=== PATIENT | female | born 1935 | race Hispanic/Latino ===

== ENCOUNTER 2020-12-22 07:10 | Observation (INO) | payer MEDICARE ==
[2020-12-22] MEDS ORDERED: ASPIRIN EC 325 MG TAB PO ONE (08:14)
[2020-12-22 08:32] LABS: Basophils # (Auto) 0.1 K/mm3 (0.0-0.1); Basophils % (Auto) 0.8 % (0.0-1.8); Eosinophils # (Auto) 0.3 K/mm3 (0.0-0.4); Eosinophils % (Auto) 3.3 % (0.0-4.3); Hematocrit 39.2 % (30.3-42.9); Hemoglobin 13.1 gm/dl (10.1-14.3); Lymphocytes # (Auto) 2.1 K/mm3 (1.2-5.4); Mean Corpuscular HGB Conc 33 % (30-34); Mean Corpuscular Volume 96 fl (79-97); Monocytes # (Auto) 0.6 K/mm3 (0.0-0.8); Platelet Count 189 K/mm3 (140-440); Red Blood Count 4.11 M/mm3 (3.65-5.03); Red Cell Distribution Width 13.7 % (13.2-15.2)
[2020-12-22] MEDS ORDERED: HEPARIN/NS 5000 UNIT/500ML 1,000 ML IR ONE (08:48)
[2020-12-22 08:57] LABS: Calcium 8.5 mg/dL (8.4-10.2)
[2020-12-22] MEDS ORDERED: SODIUM CHLORIDE 0.9% 500 ML 500 ML IV SCH (09:00)
[2020-12-22] MEDS: fentaNYL 100 MCG/2 ML INJ ONE ×2 (09:25→09:53)
[2020-12-22] MEDS: VERAPAMIL 5 MG/2 ML INJ ONE ×2 (09:26→09:56)
[2020-12-22] MEDS: LIDOCAINE (2%) 20 MG/1 ML VIAL 20 ML MDV INFILTRATI ONE ×2 (09:26→09:54)
[2020-12-22] MEDS: HEPARIN 10,000 UNITS/10 ML VIAL ONE ×3 (09:26→10:11)
[2020-12-22] MEDS: MIDAZOLAM 2 MG/2 ML INJ ONE ×2 (09:26→09:53)
[2020-12-22] MEDS: NITROGLYCERIN SYRINGE 3 ML ONE ×2 (09:27→09:56)
[2020-12-22] MEDS ORDERED: CLOPIDOGREL 300 MG TAB ONE (10:37)
[2020-12-22] MEDS ORDERED: ALUM-MAG HYDROXIDE-SIMETHICONE 200-200-20MG/5ML ORAL LIQD 30 ML ONE (10:37)
--- NOTE | 2020-12-22 10:57 | Cardiac Catherization Report ---
REFERRING PHYSICIAN: Dr. Shawna Gotti. INDICATION FOR PROCEDURE: The patient is a very pleasant 85-year-old female, having worsening shortness of breath, abnormal stress test with nuclear perfusion imaging. She is known to have nonobstructive coronary artery disease from catheterization years ago. Risks, benefits, alternatives discussed at length prior to obtaining informed consent. PROCEDURE IN DETAIL: The patient was brought to catheterization lab in a postabsorptive state, prepped and draped in sterile fashion. Ishan's test in right hand was normal. A 2 mL of 2% lidocaine used to anesthetize the right wrist. A standard 6-Martiniquais hydrophilic sheath used to cannulate the right radial artery via modified Seldinger technique. All exchanges performed to exchange a J-tip guidewire. JL3.5 catheter used to engage the left main. No dampening or ventricularization. Cineangiography performed in all projections. JR4 catheter was used to cross the aortic valve under fluoroscopic guidance. Left ventriculography performed in 30 GODOY and 30 INDONESIAN projections via hand injections, catheter flushed. Manual pullback performed with continuous pressure monitoring. Catheter used to engage the right coronary. No dampening or ventricularization. Cineangiography performed in all projections. Next, a catheter removed from the body. DATA: Aortic pressure is 120/50, LV pressure is 120. LVEDP of 15 mmHg. Left ventriculography reveals normal systolic performance with estimated ejection fraction of 50-55%. No evidence of aortic stenosis. CORONARY ANATOMY: This is a right dominant system. Right coronary artery is a moderate sized vessel, courses AV groove, distally bifurcates into posterior and posterolateral branches. The right coronary is diffusely and heavily calcified with a long 60-70% stenoses throughout the proximal and mid segment. Again, heavily calcified. CARLI 3 flow. Would recommend medical management. The left main without significant disease, bifurcates into left anterior descending and left circumflex. The left circumflex, moderate sized vessel, courses AV groove. No significant disease. LAD is a moderate sized vessel, courses anterior intergroove, wraps around the apex. There is a 90% stenosis in the mid portion of the proximal LAD. This correlates with her abnormal stress test. This is a discrete lesion, eccentric only mildly calcified. At this point, given her symptoms, abnormal stress test with anterior ischemia, we decided to proceed with PCI. Heparin given. Abnormal ACT confirmed. We used an EBU 3.0 guide to engage the left main without difficulty. Heparin given. Abnormal ACT is confirmed. The patient is on Plavix and aspirin. A [place] wire used to cross the lesion without difficulty. We used a 3.0 x 18 [place] drug-eluting stent at 12 DORIS for 30 seconds. The distal segment of the stent is under expanded. We used a 3.0 x 12 noncompliant balloon to post-dilate the segment successfully. Intravascular ultrasound reveals well-opposed, well-expanded stent, 0% residual stenosis, CARLI 3 flow. Final angiogram reveals no complication. The patient tolerated the procedure well. No chest pain. I directly supervised the administration of moderate sedation with fentanyl and Versed from 9:50 a.m. to 10:35 a.m. No immediate complications identified. CONCLUSIONS: 1. Severe coronary artery disease. A. Culprit 90% ulcerated proximal LAD. Successful IVUS-guided percutaneous coronary intervention with placement of drug-eluting stent ([place] 3.0 x 18) with excellent final angiographic and ultrasonographic results, 0% stenosis and CARLI 3 flow. B. Long calcific complex 60-70% proximal and mid right coronary stenosis. Recommend medical management. 2. No other obstructive disease identified. 3. Preserved left ventricular systolic performance, estimated ejection fraction of 55-60%. 4. No evidence of aortic stenosis. 5. Normal LVEDP. 6. Normal sinus rhythm throughout. The patient is clinically stable, chest pain free. Aspirin, Plavix, statin, standard radial care. We will discuss with daughter, Carolyn, via telephone. If the patient has any recurrent chest pain, we would consider rotablation and PCI of complex right coronary at [place], but would reserve that only if needed. Anticipate a.m. discharge. JOB# [id number] SBM/NTS
[2020-12-22] MEDS ORDERED: HYDROcodone/ACETAMINOPHEN 5-325 MG TAB PO PRN (11:30)
[2020-12-22] MEDS: APIXABAN 5 MG TAB PO SCH (22:35)
[2020-12-22] MEDS: carvediloL 12.5 MG TAB PO SCH (22:35)
[2020-12-23 06:33] LABS: Basophils % (Auto) 0.6 % (0.0-1.8); Eosinophils # (Auto) 0.2 K/mm3 (0.0-0.4); Eosinophils % (Auto) 2.1 % (0.0-4.3); Hematocrit 37.5 % (30.3-42.9); Hemoglobin 12.4 gm/dl (10.1-14.3); Lymphocytes # (Auto) 1.3 K/mm3 (1.2-5.4); Lymphocytes % (Auto) 16.8 % (13.4-35.0); Mean Corpuscular HGB Conc 33 % (30-34); Mean Corpuscular Volume 95 fl (79-97); Monocytes # (Auto) 0.6 K/mm3 (0.0-0.8); Monocytes % (Auto) 7.2 % (0.0-7.3); Platelet Count 179 K/mm3 (140-440); Red Blood Count 3.97 M/mm3 (3.65-5.03); Red Cell Distribution Width 13.8 % (13.2-15.2)
[2020-12-23 06:37] LABS: Creatine Kinase MB 8.6 ng/mL (0.0-4.0)
[2020-12-23 06:40] LABS: Calcium 8.4 mg/dL (8.4-10.2)
[2020-12-23 06:51] LABS: Chol/HDL Ratio 2.16 %
--- NOTE | 2020-12-23 09:04 | XRay Report ---
CHEST 1 VIEW 12/23/2020 7:53 AM INDICATION / CLINICAL INFORMATION: post pci. COMPARISON: None available. FINDINGS: SUPPORT DEVICES: Pacemaker has been placed from a left approach. HEART / MEDIASTINUM: No significant abnormality. LUNGS / PLEURA: No significant pulmonary or pleural abnormality. No pneumothorax. ADDITIONAL FINDINGS: No significant additional findings. IMPRESSION: 1. No acute findings. Signer Name: Peter Eng MD Signed: 12/23/2020 8:59 AM Workstation Name: [id number]
[2020-12-23] MEDS ORDERED: ASPIRIN 81 MG TAB CHEW PO SCH (10:00)
[2020-12-23] MEDS ORDERED: CLOPIDOGREL 75 MG TAB PO SCH (10:00)
[2020-12-23] MEDS ORDERED: amLODIPine 5 MG TAB PO SCH (10:00)
[2020-12-23] MEDS ORDERED: ASPIRIN EC 325 MG TAB PO SCH (10:00)
[2020-12-23] MEDS ORDERED: APIXABAN 5 MG TAB PO SCH (10:00)
--- NOTE | 2020-12-23 10:58 | Short Stay Summary ---
Short Stay Documentation Date of service: 12/23/20 - History H&P: obtained from office - Allergies and Medications Current Medications: Allergies sulfamethoxazole [From Bactrim] Allergy (Verified 12/22/20 08:13) Rash trimethoprim [From Bactrim] Allergy (Verified 12/22/20 08:13) Rash Home Medications Medication Instructions Recorded Confirmed Last Taken Type Apixaban [Eliquis] 5 mg PO DAILY 12/22/20 12/22/20 12/19/20 History 5 mg Escitalopram [Lexapro] 10 mg PO DAILY 12/22/20 12/22/20 12/21/20 History 10 mg Furosemide [Lasix] 40 mg PO DAILY 12/22/20 12/22/20 12/21/20 History 40 mg Isosorbide Mononitrate [Isosorbide 30 mg PO DAILY 12/22/20 12/22/20 12/21/20 History Mononitrate ER] 30 mg Levothyroxine [Synthroid] 100 mcg PO DAILY 12/22/20 12/22/20 12/21/20 History 100 mcg Olmesartan (Nf) [Benicar] 20 mg PO DAILY 12/22/20 12/22/20 12/21/20 History 20 mg Rosuvastatin (Nf) [Crestor] 10 mg PO QHS 12/22/20 12/22/20 12/21/20 History 10 mg amLODIPine 5 mg PO DAILY 12/22/20 12/22/20 12/21/20 History 5 mg carvediloL [Coreg] 12.5 mg PO BID 12/22/20 12/22/20 12/21/20 History 12.5mg traZODone [Desyrel] 50 mg PO QHS 12/22/20 12/22/20 12/21/20 History 12.5mg Active Medications Hydrocodone Bitart/Acetaminophen (Hydrocodone/Acetaminophen 5-325 Mg Tab) 1 each PO Q6H PRN PRN Reason: Pain, Moderate (4-6) Amlodipine Besylate (Amlodipine 5 Mg Tab) 5 mg PO DAILY LIZ Apixaban (Apixaban 5 Mg Tab) 5 mg PO BID LIZ; Protocol Last Admin: 12/22/20 22:35 Dose: 5 mg Documented by: Aspirin (Aspirin 81 Mg Tab Chew) 81 mg PO QDAY LIZ Atorvastatin Calcium (Atorvastatin 40 Mg Tab) 40 mg PO QHS [facility] Last Admin: 12/22/20 22:35 Dose: 40 mg Documented by: Carvedilol (Carvedilol 12.5 Mg Tab) 12.5 mg PO BID [facility] Last Admin: 12/22/20 22:35 Dose: 12.5 mg Documented by: Clopidogrel Bisulfate (Clopidogrel 75 Mg Tab) 75 mg PO QDAY [facility] Isosorbide Mononitrate (Isosorbide Mononitrate Er 30 Mg Tab) 30 mg PO DAILY [facility] - Physical exam General appearance: no acute distress Integumentary: no rash, no growths, no abnormal pigmentation, other (RRA [facility] site c/d/i, no bleeding or hematoma ) HEENT: Atraumatic, PERRLA Lungs: Clear to auscultation Heart: Regular rate, Normal S1, Normal S2 Gastrointestinal: normal, normoactive bowel sounds Extremities: no ischemia, pulses intact, pulses symmetrical Neurological: Normal gait, Normal speech, Strength at 5/5 X4 ext - Brief post op/procedure progress note Date of procedure: 12/22/20 Pre-op diagnosis: abnormal stress test Post-op diagnosis: other (CAD) Procedure: [facility] with PCI - see dictated cath report Anesthesia: local Estimated blood loss: none Condition: stable - Disposition Condition at discharge: Good Disposition: [id number] TO HOME OR SELFCARE - Discharge Diagnoses (1) CAD (coronary artery disease) Status: Chronic (2) Stented coronary artery Status: Chronic (3) Paroxysmal atrial fibrillation Status: Chronic (4) Current use of buttermaker helper anticoagulation Status: Chronic (5) HTN (hypertension) Status: Chronic (6) Hyperlipidemia Status: Chronic Short Stay Discharge Plan Activity: advance as tolerated Diet: low fat, low cholesterol, low salt Wound: open to air, keep clean and dry, per your surgeon's advice Follow up with: BENJAMIN JIN MD [Primary Care Provider] - 7 Days JEY HUTCHINSON MD [Staff Physician] - 7 Days ([facility], 01/05/2021 @ 1:30PM) Prescriptions: Clopidogrel [Plavix] 75 mg PO QDAY #90 tablet
[2020-12-23] MEDS: APIXABAN 5 MG TAB PO SCH (12:06)
[2020-12-23] MEDS: carvediloL 12.5 MG TAB PO SCH (12:07)
[2020-12-23 12:31] VITALS: BP 137/59
== END 2020-12-23 16:00 | disposition home or self-care (01) ==
LOC: CATHLABREC 07:10 → 4A 10:47
PROVIDERS: ADMIT Internal Medicine; ATTEND Internal Medicine
DX: I25.10 Atherosclerotic heart disease of native coronary artery without angina pectoris (principal); I48.0 Paroxysmal atrial fibrillation; I10 Essential (primary) hypertension; E78.5 Hyperlipidemia, unspecified; R94.39 Abnormal result of other cardiovascular function study; R79.1 Abnormal coagulation profile; E03.9 Hypothyroidism, unspecified; I73.9 Peripheral vascular disease, unspecified; I73.00 Raynaud's syndrome without gangrene; Z98.41 Cataract extraction status, right eye; Z98.42 Cataract extraction status, left eye; Z95.1 Presence of aortocoronary bypass graft; Z79.82 Long term (current) use of aspirin
CPT/HCPCS: 36415; 71045; 80048; 80061; 82550; 82553; 84484; 85025; 85610; 85730; 92978; 93005; 93458; A9270; C1725; C1753; C1769; C1874; C1887; C1894; C9600; G0378; J1644; J2250; J3010; J7040; 92928; Q9967